=== PATIENT | male | born 1970 | race Caucasian/White ===

== ENCOUNTER 2019-11-18 08:45 | Emergency (ER) | payer BC ==
[~2019-11-18] VITALS: Ht 172.7 cm; Wt 122.5 kg
[2019-11-18] MEDS ORDERED: ATORVASTATIN CA20 MG PO (08:54)
[2019-11-18] MEDS ORDERED: PREDNISONE50 MG PO (09:38)
[2019-11-18] MEDS ORDERED: NORCO 5-325 TA1 EAC2 PO (09:38)
[2019-11-18] MEDS ORDERED: IBUPROFEN 800800 M1 PO (09:38)
[2019-11-18] MEDS ORDERED: FLEXERIL PO (09:38)
[2019-11-18 10:20] VITALS: BP 145/85
== END 2019-11-18 10:20 | disposition home or self-care (01) ==
LOC: M.ERS 08:45
DX: M54.5 Low back pain (principal); Z88.0 Allergy status to penicillin